=== PATIENT | female | born 1995 | race Two or more races ===

== ENCOUNTER 2025-05-22 21:01 | Emergency (ER) | payer BC, OTHER ==
[~2025-05-22] VITALS: Ht 154.9 cm; Wt 70.3 kg
[2025-05-22 21:07] VITALS: BP 116/87; PULSE 82; RESP 20; TEMP 98.7; O2SAT 98
[2025-05-22] MEDS ORDERED: CLIN1CAP70 PO (23:33)
[2025-05-22] MEDS ORDERED: IBUP-1456 PO (23:33)
--- NOTE | 2025-05-22 23:35 | ED.PDOC ---
Eye-HPI HPI Comments 30-year-old female presents to ER with complaints of toothache x1 month. Patient reports she has been experiencing right lower toothache pain x1 month that got worse with associated right sided facial swelling x1 day. She rates her current pain an 8/10 and notes that she did take ibuprofen for her pain with slight relief. Patient presents to ER ambulatory on arrival, with steady gait, afebrile, in no distress and notes she does have an appointment with a dentist in two weeks. Denies fever, body aches, chills, headache, nausea/vomiting or any further symptoms/complaints Chief Complaint: Tooth Pain Time Seen by MD: 21:24 Primary Care Provider: UNKNOWN Reviewed Notes: Nurses Notes, Medications, Allergies Allergies: Coded Allergies: NO KNOWN ALLERGIES (Unverified , 05/22/25) Home Meds Active Scripts Ibuprofen (Ibuprofen) 800 Mg Tab, 1 TAB PO TID PRN, #30 TAB 0 Refills Prov:DARIA YEN 05/22/25 Clindamycin Hcl (Clindamycin Hcl) 300 Mg Cap, 300 MG PO QID for 10 Days, #40 CAP 0 Refills Prov:DARIA YEN 05/22/25 Information Source: Patient Mode of Arrival: Ambulatory Past Medical History PAST MEDICAL HISTORY: Denies Surgical History: Denies all surgeries HOME HEALTH NURSE History: No Pertinent HOME HEALTH NURSE History [facility] 05-01-25 Family History Family History: Unknown Social History Smoker: Non-Smoker Alcohol: Denies ETOH Use Drugs: Denies Drug Use Lives In: Home Constitutional: denies: chills, diaphoresis, fatigue, fever, malaise, sweats, weakness, others EENTM: reports: others (As stated in HPI) Respiratory: denies: cough, hemoptysis, orthopnea, SOB at rest, shortness of breath, SOB with excertion, stridor, wheezing, others Cardiovascular: denies: chest pain, dizzy spells, diaphoresis, Dyspnea on exertion, edema, irregular heart beat, left arm pain, lightheadedness, palpitations, PND, syncope, others Gastrointestinal: denies: abdomen distended, abdominal pain, blood streaked bowels, constipated, diarrhea, dysphagia, difficulty swallowing, hematemesis, melena, nausea, poor appetite, poor fluid intake, rectal bleeding, rectal pain, vomiting, others Genitourinary: denies: abnormal vagina bleeding, burning, dyspareunia, dysuria, flank pain, frequency, hematuria, incontinence, pain, , vagina discharge, urgency, others Neurological: denies: dizziness, fainting, headache, left sided numbness, left sided weakness, numbness, paresthesia, pre-existing deficit, right sided numbness, right sided weakness, seizure, speech problems, tingling, tremors, weakness, others Musculoskeletal: denies: back pain, gout, joint pain, joint swelling, muscle pain, muscle stiffness, neck pain, others Integumetry: reports: others (As stated in HPI) Allergic/Immunocompromised: denies: Difficulty Healing, Frequent Infections, Hives, Itching, others Hematologic/Lymphatic: denies: anemia, blood clots, easy bleeding, easy bruising, swollen glands, others Endocrine: denies: excessive hunger, excessive sweating, excessive thirst, excessive urination, flushing, intolerance to cold, intolerance to heat, unexplained weight gain, unexplained weight loss, others Psychiatric: denies: anxiety, bipolar disorder, depression, hopeless, panic disorder, schizophrenia, sleepless, suicidal, others Physical Exam General Appearance: No Apparent Distress HEENT: PERRL/EOMI, Pharynx Normal, TMs Normal Neck: Full Range of Motion, Non-Tender, Normal Respiratory: Chest Non-Tender, Lungs Clear, No Accessory Muscle Use, No Respiratory Distress, Normal Breath Sounds Cardiovascular: No Murmur, No Gallop, Regular Rate/Rhythm Breast Exam: Deferred Gastrointestinal: NOT DONE Genitalia: Deferred Pelvic: Deferred Rectal: Deferred Extremities: Normal capillary refill, Normal range of motion Neurologic: Alert, arts [employer] sciences dean II-XII nml as Tested, No Motor Deficits, Normal Affect, Normal Mood, No Sensory Deficits Cerebellar Function: Normal Reflexes: Normal Skin: Dry, Normal Color, Warm Lymphatic: No Adenopathy Was a procedure done? Was a procedure done?: No Sedation Sedation?: No Images 1 - Mild surrounding gum swelling/erythema noted without bleeding/drainage. Mild right-sided facial swelling also noted. No further skin changes noted EENT DIFF Eye: N/A Mouth: Thrush, Other (Cuauhtemoc's angina, dental abscess, fractured tooth) X-Ray, Labs, Meds, VS Vital Signs Date Time Temp Pulse Resp B/P (MAP) Pulse Ox O2 Delivery O2 Flow Rate FiO2 05/22/25 21:07 98.7 82 20 116/87 98 98.7 Current Medications Medications (Trade) Dose Ordered Sig/Say Route Start Time Stop Time Status Last Admin Clindamycin Phosphate 50 ml @ 50 mls/hr ONCE ONCE IV 05/22/25 23:30 05/23/25 00:29 DC 05/22/25 23:43 Ketorolac Tromethamine (Toradol Injection) 30 mg ONCE ONCE IV 05/22/25 23:30 05/22/25 23:31 DC 05/22/25 23:43 Benzocaine (Hurricaine [place]) 1 spr ONCE ONCE MT 05/22/25 23:45 05/22/25 23:46 DC 05/22/25 23:43 Hep-Lock IV ordered Clindamycin 900 mg IV ordered Toradol 30 mg IV ordered Hurricane spray ordered, patient educated on proper use/dosage Advised to follow up with PCP and dentist in 1-2 days Patient verbalized understanding and agreeable with current plan of care Advised to return to ER immediately if symptoms worsen Time of 1ST Reevaluation: 23:02 Reevaluation 1ST: N/A Patient Education/Counseling: Diagnosis, Treatment, Prognosis, Need For Follow Up Family Education/Counseling: No Family Present SEPSIS Sepsis Screen Date sepsis recognized/suspect: May 22, 2025 Time Sepsis recognized/suspect: 2109 Recent Procedure: No On Antibiotic Therapy: No Respiratory Rate >20: No Heart Rate >90: No Temp<36 C (96.8 F) or >38.3 C: No SBP <90 or MAP <65 mmHG: No New Acute Mental Status Change: No Is the patient on CPAP, BIPAP,: No Physician Orders Heplock Iv (05/22/25 ) Vital Signs Date Time Temp Pulse Resp B/P (MAP) Pulse Ox O2 Delivery O2 Flow Rate FiO2 05/22/25 21:07 98.7 82 20 116/87 98 98.7 Medications Medications Dose Ordered Sig/Say Route Start Time Stop Time Status Last Admin Dose Admin Benzocaine 1 spr ONCE ONCE MT 05/22/25 23:45 05/22/25 23:46 DC 05/22/25 23:43 Clindamycin Phosphate 50 ml @ 50 mls/hr ONCE ONCE IV 05/22/25 23:30 05/23/25 00:29 DC 05/22/25 23:43 Ketorolac Tromethamine 30 mg ONCE ONCE IV 05/22/25 23:30 05/22/25 23:31 DC 05/22/25 23:43 Departure 1 Departure Time of Disposition: 23:32 Impression: Primary Impression: Dental infection Disposition: HOME / SELF CARE / HOMELESS Condition: Stable e-Prescriptions Ibuprofen (Ibuprofen) 800 Mg Tab 1 TAB PO TID PRN, #30 TAB 0 Refills Prov: DARIA YEN 05/22/25 Clindamycin Hcl (Clindamycin Hcl) 300 Mg Cap 300 MG PO QID for 10 Days, #40 CAP 0 Refills Prov: DARIA YEN 05/22/25 Discharged With: Self Critical Care Note Critical Care Time?: No Stability Stability form required: No Heart Score Heart Score: Heart Score Response (Comments) Value History N/A 0 EKG N/A 0 Age N/A 0 Risk Factors N/A 0 Troponin N/A 0 Total 0 DARIA YEN May 22, 2025 23:35
[2025-05-22] MEDS: BENZOCAINE (DENTAL) 20 % SPRAY 60ML MT ONE (23:43)
[2025-05-22] MEDS: KETOROLAC TROMETH 30 MG/ML 1ML VIAL IV ONE (23:43)
[2025-05-22] MEDS: CLINDAMYCIN 900MG IV 50 ML IV ONE (23:43)
== END 2025-05-23 00:42 | disposition home or self-care (01) ==
LOC: ER 21:01
DX: K04.7 Periapical abscess without sinus (principal); Z79.899 Other long term (current) drug therapy
CPT/HCPCS: 96365; 96375; 99284; J1885; J3490